=== PATIENT | female | born 1965 ===

== ENCOUNTER 2023-03-25 18:12 | Emergency (ER) | payer OTHER, SELFPAY ==
[2023-03-25 18:14] VITALS: BP 152/64; PULSE 77; RESP 15; TEMP 36.4; O2SAT 100
== END 2023-03-25 18:14 | disposition left against medical advice (07) ==
LOC: ANHED 18:39
DX: M79.642 Pain in left hand (principal); M79.641 Pain in right hand
CPT/HCPCS: 99199